=== PATIENT | female | born 1955 | race Caucasian/White ===

== ENCOUNTER 2025-06-20 18:09 | Inpatient (IN) | payer MEDICARE, BC ==
[~2025-06-20] VITALS: Ht 160 cm; Wt 96.2 kg
[2025-06-20] MEDS ORDERED: FURO-152 PO (18:26)
[2025-06-20] MEDS ORDERED: QUET25TA PO (18:26)
[2025-06-20] MEDS ORDERED: SEMA0.25 SQ (18:26)
[2025-06-20] MEDS ORDERED: DESV50TA PO (18:26)
[2025-06-20] MEDS ORDERED: BUSP10TA3 PO (18:26)
[2025-06-20] MEDS ORDERED: LOSA50TA3 PO (18:26)
[2025-06-20] MEDS ORDERED: LAMO200T2 PO (18:26)
[2025-06-20] MEDS ORDERED: LITH300T27 PO (18:26)
[2025-06-20] MEDS ORDERED: CHOL10005 PO (18:26)
[2025-06-20] MEDS ORDERED: ROSU10TA2 PO (18:26)
[2025-06-20] MEDS ORDERED: LORA-259 PO (18:26)
[2025-06-20 19:09] LABS: PLATELET COUNT (AUTO) 251 K/uL (179-408); RED BLOOD CELL COUNT(AUTO) 4.28 MIL/uL (3.63-4.92); RED CELL DISTRIBUTION WIDTH 14.6 % (12.3-17.7); WHITE BLOOD COUNT (AUTO) 6.9 K/uL (3.8-11.8)
[2025-06-20 19:14] VITALS: BP 142/105
[2025-06-20 19:17] LABS: *BILIRUBIN,URIN NEGATIVE (NEGATIVE); *CLARITY,URINE CLEAR (CLEAR); *COLOR,URINE YELLOW (YELLOW); *KETONES,URINE NEGATIVE (NEGATIVE); *PROTEIN,URINE NEGATIVE (NEGATIVE); *UROBILINOGEN,URINE 0.2 E.U./dl (NORMAL); LEUKOCYTE ESTERASE ,URINE NEGATIVE (NEGATIVE); NITRITE, URINE NEGATIVE (NEGATIVE); UGLUCOSE NEGATIVE (NEGATIVE)
[2025-06-20 19:18] LABS: *BLOOD, URINE TRACE (NEGATIVE)
[2025-06-20 19:19] LABS: CREATININE 0.7 mg/dL (0.6-1.3); SODIUM SERUM 144 mmol/L (136-145); UREA NITROGEN, BLOOD 21 mg/dL (7-18)
[2025-06-20 19:23] LABS: SQUAMOUS EPITHELIAL CELL,UR FEW /HPF (NONE SEEN)
[2025-06-20 19:24] LABS: ETHANOL < 3 MG/DL (0-10)
[2025-06-20 19:25] LABS: ASPARTATE AMINOTRANSFERASE 16 U/L (15-37); TOTAL PROTEIN, SERUM 7.0 g/dL (6.4-8.2)
[2025-06-20 19:28] LABS: *AMPHETAMINE, URINE NEGATIVE (NEGATIVE); *BARBITURATE, URINE NEGATIVE (NEGATIVE); *BENZODIAZEPINE, URINE NEGATIVE (NEGATIVE); *CANNABINOID, URINE NEGATIVE (NEGATIVE); *COCCAINE, URINE NEGATIVE (NEGATIVE); *OPIATE, URINE NEGATIVE (NEGATIVE); *PHENCYCLIDINE SCREEN,URINE NEGATIVE (NEGATIVE); FENTANYL, URINE NEGATIVE (NEGATIVE)
[2025-06-20] MEDS ORDERED: MAG HYDROX/AL HYDROX/SIMETH 30 ML LIQUID UDC PO PRN (21:00)
[2025-06-20] MEDS ORDERED: MAGNESIUM HYDROXIDE 30 ML LIQUID UDC PO PRN (21:00)
[2025-06-20] MEDS: BLOOD SUGAR DIAGNOSTIC 1 EACH STRIP VI ONE (21:11)
[2025-06-20] MEDS: TEMAZEPAM 7.5 MG CAPSULE PO PRN (22:56)
[2025-06-20] MEDS ORDERED: CEPH500C2 PO (23:08)
[2025-06-21] MEDS: LORAZEPAM 0.5 MG TABLET PO PRN (05:02)
[2025-06-21 07:53] VITALS: BP_SYST 121; BP_SYST 157; BP_DIAS 62; BP_DIAS 82; TEMP 97.6; O2SAT 98
[2025-06-21] MEDS: CHOLECALCIFEROL 1,000 UNIT TABLET PO SCH (09:01)
[2025-06-21] MEDS: LOSARTAN POTASSIUM 50 MG TABLET PO SCH (09:08)
[2025-06-21] MEDS: FUROSEMIDE 20 MG TABLET PO SCH (09:08)
[2025-06-21] MEDS ORDERED: PNEUMOCOCCAL 23-VAL P-SAC VAC 0.5 ML VIAL IM ONE (10:00)
[2025-06-21 16:18] VITALS: BP 142/79; TEMP 97.6; O2SAT 99
[2025-06-21 19:52] VITALS: BP 134/77; TEMP 98; O2SAT 96
[2025-06-21] MEDS: ATORVASTATIN 10 MG TABLET PO SCH (21:56)
[2025-06-21] MEDS: QUETIAPINE FUMARATE 25 MG TABLET PO SCH (21:56)
[2025-06-21] MEDS: LITHIUM CARBONATE 150 MG CAPSULE PO SCH (21:56)
[2025-06-21] MEDS: LAMOTRIGINE 200 MG TABLET PO SCH (21:56)
[2025-06-22] MEDS: TEMAZEPAM 7.5 MG CAPSULE PO PRN (00:44)
[2025-06-22 07:53] VITALS: BP 141/78; TEMP 97.6; O2SAT 99
[2025-06-22] MEDS: LORAZEPAM 0.5 MG TABLET PO PRN (12:45)
[2025-06-22 16:15] VITALS: BP 178/93; TEMP 97.9; O2SAT 100
[2025-06-22 20:00] VITALS: BP 140/86; TEMP 97.5; O2SAT 99
[2025-06-23 08:16] LABS: CREATININE 0.9 mg/dL (0.6-1.3); SODIUM SERUM 142.0 mmol/L (136-145); UREA NITROGEN, BLOOD 24.0 mg/dL (7-18)
[2025-06-23 08:43] VITALS: BP 176/84; TEMP 97.5; O2SAT 99
[2025-06-23 16:20] VITALS: BP 162/81; TEMP 97.5; O2SAT 99
[2025-06-23 21:52] VITALS: BP 145/86; TEMP 98; O2SAT 97
[2025-06-24 08:11] VITALS: BP 162/83; TEMP 98.3; O2SAT 99
[2025-06-24 16:08] VITALS: BP 162/81; TEMP 97.5; O2SAT 99
[2025-06-24 20:18] VITALS: BP 155/82; TEMP 97.8; O2SAT 98
[2025-06-24] MEDS ORDERED: LITHIUM CARBONATE 150 MG CAPSULE PO SCH (21:00)
[2025-06-24] MEDS ORDERED: LITHIUM CARBONATE 150 MG CAPSULE PO ONE (21:00)
[2025-06-24] MEDS ORDERED: LITHIUM CARBONATE 300 MG TABLET.SA PO SCH ×2 (21:00)
[2025-06-24] MEDS: LITHIUM CARBONATE 150 MG CAPSULE PO SCH (21:47)
[2025-06-25 08:10] VITALS: BP 156/86; TEMP 97.5; O2SAT 99
[2025-06-25] MEDS: ACETAMINOPHEN 325 MG TABLET PO PRN (14:22)
[2025-06-25 16:28] VITALS: BP 152/81; TEMP 97.5; O2SAT 99
[2025-06-25 19:48] VITALS: BP 138/77; TEMP 97.7; O2SAT 98
[2025-06-25] MEDS: LITHIUM CARBONATE 300 MG CAPSULE PO SCH (20:52)
[2025-06-26 07:30] VITALS: BP 140/73; TEMP 98; O2SAT 99
[2025-06-26 07:50] LABS: PLATELET COUNT (AUTO) 314 K/uL (179-408); RED BLOOD CELL COUNT(AUTO) 4.45 MIL/uL (3.63-4.92); RED CELL DISTRIBUTION WIDTH 14.4 % (12.3-17.7); WHITE BLOOD COUNT (AUTO) 7.1 K/uL (3.8-11.8)
[2025-06-26 08:05] LABS: ASPARTATE AMINOTRANSFERASE 21.0 U/L (15-37); CREATININE 0.8 mg/dL (0.6-1.3); SODIUM SERUM 144.0 mmol/L (136-145); TOTAL PROTEIN, SERUM 7.6 g/dL (6.4-8.2); UREA NITROGEN, BLOOD 25.0 mg/dL (7-18)
[2025-06-26 08:57] VITALS: BP 140/73
== END 2025-06-26 13:15 | disposition home or self-care (01) | DRG 885 ==
LOC: ER 18:20 → GPS 20:24
PROVIDERS: ADMIT Psychiatry & Neurology Psychosomatic Medicine; ATTEND Nurse Practitioner Acute Care
DX: F31.30 Bipolar disorder, current episode depressed, mild or moderate severity, unspecified (principal); R45.851 Suicidal ideations; N39.0 Urinary tract infection, site not specified; D68.59 Other primary thrombophilia; Z98.84 Bariatric surgery status; E78.5 Hyperlipidemia, unspecified; Z79.899 Other long term (current) drug therapy; E66.01 Morbid (severe) obesity due to excess calories; Z68.37 Body mass index [BMI] 37.0-37.9, adult; I10 Essential (primary) hypertension; E83.52 Hypercalcemia; E86.0 Dehydration; Z90.710 Acquired absence of both cervix and uterus; Z63.0 Problems in relationship with spouse or partner
CPT/HCPCS: 36415; 70030-TC; 71045; 84443; 84484; 85025; 90732; G0480; J8499